=== PATIENT | male | born 1950 | race Caucasian/White ===

== ENCOUNTER 2017-04-28 21:52 | Emergency (ER) | payer OTHER ==
[2017-04-28] MEDS ORDERED: Bupivacaine 0.5%/EPINEPHrine 1:200,000 50 ML MDV INJECT ONE (22:00)
[2017-04-28] MEDS ORDERED: Diphtheria,Pertussis(Acell),Tetanus Vaccine 0.5 ML SDV IM ONE (22:15)
[2017-04-28] MEDS ORDERED: cefTRIAXone 1,000 MG VIAL IM ONE (22:15)
[2017-04-28 22:18] VITALS: BP 111/77
--- NOTE | 2017-04-28 22:25 | EDM.PDOC ---
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 Pt noticed bleeding and pain at his left distal index finger. No loss of function. No other acute medical issues. Onset: Today Onset Date: 04/28/17 Onset Time: 21:50 Duration: Minutes:, Getting Worse Location: Reports: Upper Extremity, Left Quality: Reports: Burning, Dull Severity: Mild Improves with: Reports: Immobilization, Rest Worsens with: Reports: Movement Context: Reports: Trauma Associated Symptoms: Reports: No Other Symptoms - Related Data Allergies Allergy/AdvReac Type Severity Reaction Status Date / Time No Known Allergies Allergy Verified 04/28/17 22:15 Home Meds: Home Meds Aspirin 81 mg PO DAILY 04/28/17 [History] Carvedilol [Carvedilol] 1 tab PO DAILY 04/28/17 [History] Cephalexin [Keflex] 500 mg PO Q6HR #40 cap 04/28/17 [Rx] Lisinopril 2.5 mg PO DAILY 04/28/17 [History] atorvaSTATin [Lipitor] 80 mg PO DAILY 04/28/17 [History] ED ROS GENERAL - Review of Systems Review Of Systems: See Below Constitutional: Reports: No Symptoms HEENT: Reports: No Symptoms Respiratory: Reports: No Symptoms Cardiovascular: Reports: No Symptoms Endocrine: Reports: No Symptoms GI/Abdominal: Reports: No Symptoms : Reports: No Symptoms Musculoskeletal: Reports: Other (lft index finger LAC) Skin: Reports: Wound (LAC left index finger ) Neurological: Reports: No Symptoms Psychiatric: Reports: No Symptoms Hematologic/Lymphatic: Reports: No Symptoms Immunologic: Reports: No Symptoms ED EXAM, SKIN/RASH Exam: See Below Exam Limited By: No Limitations General Appearance: Alert, WD/WN, Mild Distress (minor) Eye Exam: Bilateral Eye: Normal Inspection Ears: Normal External Exam Nose: Normal Inspection, Normal Mucosa Throat/Mouth: Normal Inspection, Normal Lips Head: Atraumatic, Normocephalic Neck: Normal Inspection, Supple, Non-Tender, Full Range of Motion Respiratory/Chest: No Respiratory Distress, Lungs Clear, Normal Breath Sounds Cardiovascular: Normal Peripheral Pulses, Regular Rate, Rhythm, No Edema, No Gallop, No JVD, No Murmur Peripheral Pulses: 1+: Femoral (L), Femoral (R) GI/Abdominal: Normal Bowel Sounds, Soft, Non-Tender, No Organomegaly, No Abnormal Bruit (Male) Exam: Deferred Rectal (Males) Exam: Deferred Back Exam: Normal Inspection, Full Range of Motion Extremities: Normal Range of Motion, Non-Tender, No Pedal Edema, Normal Capillary Refill, Other (LAC left index finger) Neurological: Alert, Oriented, CN II-XII Intact, Normal Cognition, Normal Gait Psychiatric: Normal Affect, Normal Mood Skin: Warm, Dry, Other (LAC left distal index finger. ) Location, Skin: Upper Extremity, Left Characteristics: Linear Associated features: Warmth, Tenderness Lymphatic: No Adenopathy ED SKIN PROCEDURES - Laceration/Wound Repair Left Distal Finger Lac/Wound length In cm: 2 (distal phalanx of left index finger) Appearance: Subcutaneous, Linear, Mildly Contaminated Distal NVT: Neuro & Vascular Intact, No Tendon Injury Anesthetic Type: Digital Local Anesthesia - Bupivicaine (Marcaine): 0.5% with EPI Local Anesthetic Volume: 4cc Skin Prep: Providone-Iodine (Betadine) Saline Irrigation (cc's): 5 Exploration/Debridement/Repair: Wound Explored, In a Bloodless Field, Explored to Base Suture Size: 4-0 Suture Type: Interrupted Suture Size: 4-0 # of Sutures: 3 Tetanus Status Addressed: Other (given today) Complications: No Course - Vital Signs Text/Narrative:: 66 years old w m came to the ed with his coworker after he injured his left index finger after cutting a rubber belt. Pt noticed bleeding and pain at his left distal index finger. No loss of function. No other acute medical issues. Pt refused pain meds. PE: LAC left distal index finger. No active bleed. No loss of function (flex and extension intact) Wound 2 cm in length, linear wound. Imaging: No Fx, No FB. Official report is pending. Procedure: Please see note above. Impression: LAC left index finger, repaied Tx: Wound repair, TD, Abx Reexam: Improved. Pt started he does not need work restrictions Plan: D/C with instructions. Last Recorded V/S: Last Vital Signs Temp 36.8 C 04/28/17 22:16 Pulse 72 04/28/17 22:16 Resp 16 04/28/17 22:16 BP 111/77 04/28/17 22:16 Pulse Ox 96 04/28/17 22:16 - Orders/Labs/Meds Orders: Active Orders 24 hr Category Date Time Status Vaccines to be Administered [RC] PER UNIT ROUTINE Care 04/28/17 22:16 Active Fingers Second Digit Lt F1 [CR] Stat Exams 04/28/17 22:15 Taken Meds: Medications Discontinued Medications Generic Name Dose Route Start Last Admin Trade Name Eyal PRN Reason Stop Dose Admin Ceftriaxone Sodium 1,000 mg 04/28/17 22:15 04/28/17 22:35 Rocephin IM 04/28/17 22:16 1,000 mg ONETIME ONE Administration Diphtheria/Tetanus/Acell Pertussis 0.5 ml 04/28/17 22:15 04/28/17 22:31 Adacel IM 04/28/17 22:16 0.5 ml .ONCE ONE Administration Departure - Departure Time of Disposition: 23:16 Disposition: Home, Self-Care 01 Condition: Good Clinical Impression: Laceration - Discharge Information Prescriptions: Cephalexin [Keflex] 500 mg PO Q6HR #40 cap Instructions: Laceration Care, Adult, [id number], Suture Removal, Care After , Stitches, Lawson, or Adhesive Wound Closure, [id number] Referrals: PCP,Not In Area [Primary Care Provider] - Forms: ED Department Discharge Additional Instructions: Please take Keflex Abx as recommended, wound check at your PMD's office in 2 days. Suture removal in 3 days, please apply neosporine ointment to wound twice daily, please cover the finger while taking a shower. Please come back to the ed if your symptoms get worse acutely. - My Orders Last 24 Hours: My Active Orders 04/28/17 22:15 Fingers Second Digit Lt F1 [CR] Stat 04/28/17 22:16 Vaccines to be Administered [RC] PER UNIT ROUTINE - Assessment/Plan Last 24 Hours: My Active Orders 04/28/17 22:15 Fingers Second Digit Lt F1 [CR] Stat 04/28/17 22:16 Vaccines to be Administered [RC] PER UNIT ROUTINE
--- NOTE | 2017-05-02 14:11 | CR ---
INDICATION: Caught tip in machine, pinching injury. LEFT SECOND FINGER: Three views of the left second finger revealed two arthritic changes of moderately severe degree at the DIP joint of the second - index finger. What may represent a foreign body or possibly debris on the skin is noted as a small linear density along the volar lateral aspect of the distal phalanx of the index finger. A definite displaced fracture site is not identified. However, the appearance of degenerative change may be on the basis of posttraumatic osteoarthritis - correlate clinically. With a slight deformity at the distal phalanx, a follow-up study in 10-14 days may be helpful in excluding an occult fracture site. Minimal degenerative changes are also noted at the PIP joint of the index finger and very minimally at the second metacarpophalangeal joint. IMPRESSION: 1. Possible foreign body versus debris on the skin at the distal phalanx. 2. 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 3. Minimal degenerative changes at the PIP joint and the second metacarpophalangeal joint. MTDD
== END 2017-04-28 23:26 | disposition home or self-care (01) ==
LOC: FB.ED 21:52
DX: S61.211A Laceration without foreign body of left index finger without damage to nail, initial encounter (principal); Z79.82 Long term (current) use of aspirin; Z23 Encounter for immunization; Z79.899 Other long term (current) drug therapy; W26.8XXA Contact with other sharp object(s), not elsewhere classified, initial encounter; Y99.0 Civilian activity done for income or pay
CPT/HCPCS: 12001; 73140; 90472; 90715; 99000; 99283; A4217; J0696